=== PATIENT | male | born 1955 | race Caucasian/White ===

== ENCOUNTER → 2018-11-19 | Outpatient (CLI) | payer OTHER ==
[~2018-11-19] MED LIST: CLOP75TA32 PO; ERGOCALCIFEROL PO; FOLI1TAB15 PO; HYDR-4153 PO; METOPROLOL PO; PARO12.517 PO; ROSUVASTATIN PO
== END | disposition home or self-care (01) ==
LOC: OIH 10:51
PROVIDERS: ATTEND Internal Medicine
DX: S60.352A Superficial foreign body of left thumb, initial encounter (principal); S60.852A Superficial foreign body of left wrist, initial encounter; M13.842 Other specified arthritis, left hand; M13.841 Other specified arthritis, right hand; X58.XXXA Exposure to other specified factors, initial encounter; Y93.89 Activity, other specified; Y92.89 Other specified places as the place of occurrence of the external cause; Y99.8 Other external cause status; Z89.022 Acquired absence of left finger(s)
CPT/HCPCS: 73120; 73560